=== PATIENT | female | born 1975 | race African-American/Black ===

== ENCOUNTER 2018-09-16 09:45 | Emergency (ER) | payer OTHER ==
[~2018-09-16] VITALS: Ht 152.4 cm; Wt 85.3 kg
[2018-09-16 10:04] LABS: URINE BILIRUBIN NEGATIVE (Negative); URINE BLOOD NEGATIVE (Negative); URINE CLARITY CLEAR; URINE COLOR YELLOW; URINE GLUCOSE-RANDOM* NEGATIVE (Negative); URINE KETONES 1+ (Negative); URINE LEUKOCYTES-REFLEX TRACE (Negative); URINE NITRITE-REFLEX NEGATIVE (Negative); URINE PROTEIN (DIPSTICK) NEGATIVE (Negative); URINE SPECIFIC GRAVITY 1.025 (1.005-1.035); URINE UROBILINOGEN 0.2 E.U./dl (0.2-1.0)
[2018-09-16 11:06] LABS: ABSOLUTE NEUTROPHILS 4.1 thou/uL (1.4-8.2); BASOPHILS 0.8 % (0.0-2.0); EOSINOPHILS 1.1 % (0.0-3.0); HEMATOCRIT 35.8 % (37.0-47.0); HEMOGLOBIN 12.4 gm/dL (12.0-15.0); LYMPHOCYTES 26.5 % (24.0-44.0); MCH 33.5 pg (26.0-34.0); MCHC 34.7 g/dL (28.0-37.0); MCV 96.4 fL (80.0-100.0); MONOCYTES 5.8 % (1.0-8.0); PLATELET COUNT 262 thou/uL (150-400); POLYS 65.8 % (36.0-66.0); RBC 3.71 mil/uL (4.20-5.00); RDW 15.1 % (10.5-14.5); WBC 6.2 thou/uL (4.0-11.0)
[2018-09-16 11:19] LABS: ANION GAP 11 mmol/L (7-16); BUN 15 mg/dL (7-18); CALCIUM 9.2 mg/dL (8.5-10.1); CHLORIDE 100 mmol/L (98-107); CO2 25 mmol/L (21-32); CREATININE 0.7 mg/dL (0.6-1.0); GLUCOSE 67 mg/dL (74-106)
[2018-09-16 11:20] LABS: SODIUM 136 mmol/L (136-145)
[2018-09-16 11:28] LABS: LIPASE 73 U/L (73-393); TROPONIN-I <0.06 ng/mL (<0.06)
[2018-09-16 12:41] VITALS: BP 164/79
--- NOTE | 2018-09-16 16:16 | EKG ---
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 : 1975 Requested By: Pasquale Ponce Order Number: [id number] MD: Chuck Candelaria Measurements Intervals [place] Rate: 74 P: 24 MT: 167 QRS: 12 QRSD: 82 T: 7 QT: 411 QTc: 456 Interpretive Statements Sinus rhythm Baseline wander in lead(s) V5 No previous ECG available for comparison Electronically Signed On 09-16-2018 16:16:20 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
== END 2018-09-16 12:41 | disposition home or self-care (01) ==
LOC: ER 09:45
PROVIDERS: Nurse Practitioner
DX: I10 Essential (primary) hypertension (principal); E16.2 Hypoglycemia, unspecified; R42 Dizziness and giddiness; Z88.0 Allergy status to penicillin

== ENCOUNTER → 2018-10-25 | Outpatient (CLI) | payer OTHER | LOC: RAD 10:45 | DX: Z12.31 Encounter for screening mammogram for malignant neoplasm of breast (principal) ==

== ENCOUNTER → 2019-04-28 | Outpatient (CLI) | payer OTHER | LOC: HYPER 06:58 | DX: S50.362A Insect bite (nonvenomous) of left elbow, initial encounter (principal); L03.114 Cellulitis of left upper limb; I10 Essential (primary) hypertension; E55.9 Vitamin D deficiency, unspecified; E16.2 Hypoglycemia, unspecified; M25.562 Pain in left knee; E66.9 Obesity, unspecified; Z68.30 Body mass index [BMI] 30.0-30.9, adult; W57.XXXA Bitten or stung by nonvenomous insect and other nonvenomous arthropods, initial encounter; Y93.89 Activity, other specified; Y92.89 Other specified places as the place of occurrence of the external cause; Y99.8 Other external cause status ==

== ENCOUNTER → 2019-05-08 | Outpatient (CLI) | payer BC, OTHER | LOC: HYPER 07:00 | DX: S50.362 Insect bite (nonvenomous) of left elbow (principal); L03.114 Cellulitis of left upper limb; I10 Essential (primary) hypertension; E16.2 Hypoglycemia, unspecified; E55.9 Vitamin D deficiency, unspecified; M25.562 Pain in left knee; E66.9 Obesity, unspecified; Z68.35 Body mass index [BMI] 35.0-35.9, adult; Z68.30 Body mass index [BMI] 30.0-30.9, adult; X58.XXXD Exposure to other specified factors, subsequent encounter ==